=== PATIENT | female | born 1995 | race Two or more races ===

== ENCOUNTER 2021-09-01 15:50 | Observation (INO) | payer MEDICAID ==
[~2021-09-01] VITALS: Ht 154.9 cm; Wt 97.5 kg
[2021-09-01] MEDS ORDERED: TERBUTALINE SULFATE 1 MG/ML 1ML VIAL SC SCH (17:45)
== END 2021-09-01 19:57 | disposition home or self-care (01) ==
LOC: LDRP 15:50
PROVIDERS: ADMIT Obstetrics & Gynecology; ATTEND Obstetrics & Gynecology
DX: O26.893 Other specified pregnancy related conditions, third trimester (principal); R10.9 Unspecified abdominal pain; Z3A.32 32 weeks gestation of pregnancy; V43.52XA Car driver injured in collision with other type car in traffic accident, initial encounter; Y93.89 Activity, other specified; Y92.410 Unspecified street and highway as the place of occurrence of the external cause
CPT/HCPCS: 59025; 76815; 81002; 94760; 96372; G0378